=== PATIENT | male | born 1965 | race Caucasian/White ===

== ENCOUNTER 2018-05-08 20:59 | Emergency (ER) | payer OTHER ==
[~2018-05-08] VITALS: Ht 180.3 cm; Wt 81.7 kg
[~2018-05-08 20:59] MED LIST: ACETAMINOPHEN325 M1 PO; ADDERALL; ADDERALL 20 MG20 MG; ADDERALL 20 MG20 MG PO; ALPRAZOLAM; AZITHROMYCIN 2250 MG PO; BACTRIM DS TAB1 EACH PO; BENADRYL25 MG PO; COUMADIN 5 MG TA5 M1 PO; DIAZEPAM; DOXYCYCLINE 10100 M1 PO; DOXYCYCLINE 10100 MG PO; ENOXAPARIN80 MG/0.8 SQ; ENTEX PO; FISH OIL SOFTG1 EACH; HYDROCODON-ACE1 EAC2; HYDROCODON-ACE1 EAC7; HYDROCODONE; KEFLEX500 MG PO; KENALOG60 GM TP; LEVAQUIN 750 M750 MG PO; LEXAPRO; MEDROLDOSEPACK PO; NAPROSYN500 MG PO; NICODERM CQ1 EAC1; NORCO 5-325 TA1 EACH PO; PERCOCET 5-3251 EACH PO; PREDNISONE 10 M10 M1 PO; PREDNISONE 20 M20 M1 PO; PREDNISONE 20 M20 MG PO; PROAIR HFA8.5 GM IH; PROVENTIL; THERAGRAN-M AD1 EACH PO; VALIUM2 MG PO; VENTOLIN HFA 1818 GM INH; XANAX XR1 MG PO; XANAX XR2 MG; ZOLOFT 50 MG TA50 M1 PO
[2018-05-08 22:29] VITALS: BP 156/100
== END 2018-05-08 22:30 | disposition home or self-care (01) ==
LOC: M.ERS 20:59
DX: S01.01XA Laceration without foreign body of scalp, initial encounter (principal); F17.210 Nicotine dependence, cigarettes, uncomplicated; F41.9 Anxiety disorder, unspecified; F90.9 Attention-deficit hyperactivity disorder, unspecified type; Z88.2 Allergy status to sulfonamides; W20.8XXA Other cause of strike by thrown, projected or falling object, initial encounter; Y92.89 Other specified places as the place of occurrence of the external cause; Y93.89 Activity, other specified; Y99.8 Other external cause status

== ENCOUNTER 2019-03-03 07:21 | Emergency (ER) | payer OTHER ==
[~2019-03-03] VITALS: Ht 180.3 cm; Wt 76.7 kg
[2019-03-03] MEDS ORDERED: NORVASC 2.5 MG2.5 M1 PO (07:41)
[2019-03-03] MEDS ORDERED: HYDROCODON-ACE1 EAC7 PO (07:59)
[2019-03-03 08:51] VITALS: BP 137/93
== END 2019-03-03 08:53 | disposition home or self-care (01) ==
LOC: M.ERS 07:21
DX: S52.592A Other fractures of lower end of left radius, initial encounter for closed fracture (principal); I10 Essential (primary) hypertension; F17.210 Nicotine dependence, cigarettes, uncomplicated; Z88.2 Allergy status to sulfonamides; Z86.14 Personal history of Methicillin resistant Staphylococcus aureus infection; W18.39XA Other fall on same level, initial encounter; Y93.89 Activity, other specified; Y92.89 Other specified places as the place of occurrence of the external cause; Y99.8 Other external cause status

== ENCOUNTER 2020-11-24 23:23 | Emergency (ER) | payer OTHER ==
[~2020-11-24] VITALS: Ht 180.3 cm; Wt 79.4 kg
[~2020-11-24 23:23] MED LIST changes: +HYDROCODON-ACE1 EAC7 PO; +NORVASC 2.5 MG2.5 M1 PO
[2020-11-25 00:29] VITALS: BP 189/121
--- NOTE | 2020-11-25 12:21 | EKG ---
[place] [address] ELECTROCARDIOGRAM REPORT Name: MELISSA NELSON Room: [facility]#: [id number] Admission: 11/24/20 Attend Phys: Discharge: 11/25/20 Date of : 69 Date of Service: 11/24/20 2325 Report #: [id number] THIS REPORT FOR: //name// [facility] ED Test Date: 2020-11-24 Test Time: 23:25:31 Pat Name: MELISSA NELSON Department: Room: Gender: [employer]: ID : [id number] Requested By: Tash Lacey Order Number: [id number] MD: Ethan Britt Measurements Intervals [place] Rate: 90 P: 83 OR: 157 QRS: 83 QRSD: 103 T: 70 QT: 357 QTc: 437 Interpretive Statements Sinus rhythm ST elev, probable normal early repol pattern Compared to ECG 02/17/2013 06:40:49 ST (T wave) deviation now present Electronically Signed On 11-25-2020 12:20:49 CDT by Ethan Britt [email or web address] <ELECTRONICALLY SIGNED> By: Ethan Britt MD, FAC 11/25/20 1220 2325 2325 Ethan Britt MD, [facility] /EPI
== END 2020-11-25 00:31 | disposition home or self-care (01) ==
LOC: M.ERS 23:23
DX: F41.9 Anxiety disorder, unspecified (principal); R20.2 Paresthesia of skin; R20.0 Anesthesia of skin; F90.9 Attention-deficit hyperactivity disorder, unspecified type; I10 Essential (primary) hypertension; F17.210 Nicotine dependence, cigarettes, uncomplicated; Z98.890 Other specified postprocedural states; Z79.899 Other long term (current) drug therapy; Z88.2 Allergy status to sulfonamides